=== PATIENT | female | born 1970 | race African-American/Black ===

== ENCOUNTER 2017-12-11 00:17 | Emergency (ER) | payer MEDICAID, SELFPAY ==
[~2017-12-11] VITALS: Ht 172.7 cm; Wt 98.0 kg
[2017-12-11] MEDS ORDERED: PLEASE ENTER ALLERGIES MC SCH (00:30)
[2017-12-11] MEDS ORDERED: ASPIRIN 81 MG TABLET CHEW PO ONE (00:30)
[2017-12-11] MEDS ORDERED: ACETAMINOPHEN 325 MG TABLET PO ONE (00:30)
[2017-12-11] MEDS ORDERED: ACETAMINOPHEN 325 MG TABLET ONE (00:43)
[2017-12-11 00:44] LABS: INTERNATIONAL NORMALIZED RATIO 0.98 (0.93-1.1); PROTHROMBIN TIME 10.2 Seconds (9.6-11.5)
[2017-12-11 00:47] LABS: ALANINE AMINOTRANSFERASE 18 U/L (12-78); ALBUMIN 3.4 g/dL (3.4-5.0); ANION GAP 5 mmol/L (5-15); CALCIUM 8.4 mg/dL (8.5-10.1); CHLORIDE 104 mmol/L (98-107); CREATININE 0.66 mg/dL (0.55-1.02)
[2017-12-11 00:52] LABS: ALKALINE PHOSPHATASE 85 U/L (45-117); BILIRUBIN,TOTAL 0.3 mg/dL (0.2-1.0); TOTAL PROTEIN 8.4 g/dL (6.4-8.2); TROPONIN I < 0.015 ng/mL (0.000-0.045)
[2017-12-11 01:02] LABS: MD YES; MEAN CORPUSCULAR HEMOGLOBIN 18.5 pg (27.0-34.8); MEAN CORPUSCULAR HGB CONC 28.8 g/dL (32.4-35.8); MEAN CORPUSCULAR VOLUME 64.1 fL (80-100); MEAN PLATELET VOLUME 6.7 fL (7.4-10.4); PLATELET COUNT 975 x10^3/uL (130-400); RED BLOOD COUNT 4.02 x10^6/uL (3.82-5.3); RED CELL DISTRIBUTION WIDTH 23.7 % (9.6-15.2)
[2017-12-11 01:03] LABS: BASOS#(MANUAL) 0.12 x10^3/uL (0-0.1); BASOS% (MANUAL) 1 % (0-1); LYMPH#(MANUAL) 1.95 x10^3/uL (1-3.4); LYMPHS% (MANUAL) 16 % (22-44); MONOS% (MANUAL) 9 % (2-9); SEG#(MANUAL) 9.03 x10^3/uL (1.8-6.8); SEGS% (MANUAL) 74 % (42-75)
[2017-12-11 01:05] LABS: ANISOCYTOSIS 1+; HYPOCHROMIA 1+; MICROCYTOSIS 1+; POLYCHROMASIA 1+
[2017-12-11 01:06] LABS: <PLATELET ESTIMATE> INCREASED; <PLT MORPHOLOGY> NORMAL PLT MORPH
[2017-12-11 01:40] VITALS: BP 140/74
== END 2017-12-11 01:42 | disposition home or self-care (01) ==
LOC: ED 00:33
DX: R07.89 Other chest pain (principal); D64.9 Anemia, unspecified; F17.200 Nicotine dependence, unspecified, uncomplicated
CPT/HCPCS: 36415; 71045; 80053; 83690; 84484; 85025; 85610; 85730; 93005; 99285

== ENCOUNTER 2021-02-06 23:50 | Emergency (ER) | payer MEDICAID ==
[~2021-02-06] VITALS: Ht 170.2 cm; Wt 119.3 kg
[2021-02-07 00:04] VITALS: BP 151/94
== END 2021-02-07 01:06 | disposition left against medical advice (07) ==
LOC: ED 02-07 00:02
DX: Z53.21 Procedure and treatment not carried out due to patient leaving prior to being seen by health care provider (principal)
CPT/HCPCS: 93005

== ENCOUNTER 2021-05-01 00:12 | Emergency (ER) | payer MEDICAID ==
[~2021-05-01] VITALS: Ht 170.2 cm; Wt 119.2 kg
[2021-05-01 00:15] VITALS: BP 169/110
--- NOTE | 2021-05-01 01:26 | NUR ---
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
[2021-05-01] MEDS ORDERED: LIDOCAINE-MPF 1%, 5ML ONE (01:58)
[2021-05-01] MEDS ORDERED: LIDOCAINE-MPF 1%, 5ML INFIL ONE (02:00)
--- NOTE | 2021-05-01 03:25 | NUR ---
pt upset pt in hallway that she saw lef before her and threw gown at rn. pt said she was frusterated and said sorry and she is just in pain. pt pacing around room and said she just wants her back fixed. pt said she needs a minute to decide if she wants to leave.
== END 2021-05-01 03:54 | disposition left against medical advice (07) ==
LOC: ED 03:00
DX: L02.212 Cutaneous abscess of back [any part, except buttock and flank] (principal)
CPT/HCPCS: 99281